=== PATIENT | male | born 1945 | race Caucasian/White ===

== ENCOUNTER 2017-06-05 23:00 | Emergency (ER) | payer MEDICARE ==
--- NOTE | 2017-06-05 23:37 | EDM.PDOC ---
ED HPI GENERAL MEDICAL PROBLEM - General Chief Complaint: Respiratory Problem Stated Complaint: cough and mucous Time Seen by Provider: 06/05/17 23:24 Source of Information: Reports: Patient History Limitations: Reports: No Limitations - History of Present Illness INITIAL COMMENTS - FREE TEXT/NARRATIVE: Patient arrives via ambulance with productive cough that started today. He called the ambulance because he was choking on the phlegm. He says he has had a temp today up to 100 and has had sinus pressure and congestion for 2-3 weeks. He hasn't seen a doctor but thinks he has a sinus infection. He had an albuterol neb en route which helped noticeably pt says. - Related Data Allergies Allergy/AdvReac Type Severity Reaction Status Date / Time morphine Allergy Nausea and Verified 06/05/17 23:27 Vomiting Home Meds: Home Meds Aspirin [Charu Chewable] 81 mg PO DAILY 05/09/14 [History] Atenolol 25 mg PO DAILY 05/09/14 [History] Levothyroxine [Synthroid] 50 mcg PO ACBREAKFAST 05/09/14 [History] atorvaSTATin [Lipitor] 40 mg PO DAILY 05/09/14 [History] metFORMIN [Glucophage] 500 mg PO BID 05/09/14 [History] Social & Family History - Tobacco Use Smoking Status *Q: Former Smoker Years of Tobacco use: 10 Used Tobacco, but Quit: Yes Month/Year Tobacco Last Used: march 1976 Second Hand Smoke Exposure: No - Alcohol Use Days Per Week of Alcohol Use: 1 Number of Drinks Per Day: 2 Total Drinks Per Week: 2 - Recreational Drug Use Recreational Drug Use: No ED ROS GENERAL - Review of Systems Review Of Systems: See Below Constitutional: Reports: Fever. Denies: Chills, Malaise, Weakness HEENT: Denies: Throat Pain, Vision Change Respiratory: Reports: Cough, Sputum. Denies: Shortness of Breath Cardiovascular: Denies: Chest Pain, Lightheadedness, Syncope GI/Abdominal: Denies: Abdominal Pain, Constipation, Diarrhea, Vomiting : Denies: Dysuria, Flank Pain Musculoskeletal: Denies: Neck Pain, Shoulder Pain Skin: Denies: Cyanosis, Jaundice, Mottled, Pallor, Diaphoresis Neurological: Denies: Confusion, Dizziness, Seizure, Syncope, Trouble Speaking, Difficulty Walking Psychiatric: Denies: Agitation, Anxiety, Confusion ED EXAM, GENERAL - Physical Exam Exam: See Below Exam Limited By: No Limitations General Appearance: Alert, WD/WN, No Apparent Distress Eye Exam: Bilateral Eye: EOMI, Normal Inspection, PERRL Ears: Normal External Exam, Hearing Grossly Normal Nose: Normal Inspection, No Blood Throat/Mouth: Normal Inspection, Normal Lips, Normal Voice, No Airway Compromise Head: Atraumatic, Normocephalic, Sinus Tenderness (tender to palpate over the frontal sinuses but not maxillary sinuses) Neck: Normal Inspection, Full Range of Motion Respiratory/Chest: No Respiratory Distress, Lungs Clear, Normal Breath Sounds, No Accessory Muscle Use Cardiovascular: Regular Rate, Rhythm, No Edema GI/Abdominal: Normal Bowel Sounds, Soft, Non-Tender, No Organomegaly Back Exam: No: CVA Tenderness (L), CVA Tenderness (R) Extremities: Normal Inspection, Normal Range of Motion Neurological: Alert, Oriented, Normal Cognition, No Motor/Sensory Deficits Psychiatric: Normal Affect, Normal Mood Skin Exam: Warm, Dry, Intact, Normal Color, No Rash Course - Vital Signs Last Recorded V/S: Last Vital Signs Temp 99.8 F 06/05/17 23:39 Pulse 93 06/05/17 23:39 Resp 18 06/05/17 23:39 BP 146/56 H 06/05/17 23:39 Pulse Ox 97 06/05/17 23:39 - Orders/Labs/Meds Orders: Active Orders 24 hr Category Date Time Status CXR [Chest 2V] [CR] Stat Exams 06/05/17 23:31 Ordered Amoxicillin/Clavulanate K [Augmentin 875 MG/125 MG] Med 06/06/17 00:15 Ordered 1 tab PO Q12HR Medication Orders Amoxicillin/Clavulanate Potassium (Augmentin 875 Mg/125 Mg) 1 tab PO Q12H SINA Stop: 06/06/17 12:16 Labs: Laboratory Tests 06/05/17 06/05/17 Range/Units 23:30 23:30 WBC 10.7 H (5.0-10.0) 10^3/uL RBC 4.52 (4.50-6.00) 10^6/uL Hgb 13.2 (13.0-17.0) g/dL Hct 39.9 L (40.0-52.0) % MCV 88.2 (82.0-92.0) fL MCH 29.1 (27.0-31.0) pg MCHC 33.0 (32.0-36.0) g/dL RDW 13.4 (11.5-14.5) % Plt Count 329 H (150-300) 10^3/uL MPV 7.1 L (7.4-10.4) fL Neut % (Auto) 68.4 (50.0-70.0) % Lymph % (Auto) 20.0 (20.0-40.0) % [place] % (Auto) 9.5 H (2.0-8.0) % Eos % (Auto) 1.7 (1.0-3.0) % Baso % (Auto) 0.4 (0.0-1.0) % Neut # (Auto) 7.4 H (2.5-7.0) 10^3/uL Lymph # (Auto) 2.1 (1.0-4.0) 10^3/uL [place] # (Auto) 1.0 H (0.1-0.8) 10^3/uL Eos # (Auto) 0.2 (0.1-0.3) 10^3/uL Baso # (Auto) 0.0 (0.0-0.1) 10^3/uL Sodium 141 (136-145) mmol/L Potassium 3.6 (3.3-5.3) mmol/L Chloride 103 (98-115) mmol/L Carbon Dioxide 25.1 (21.0-32.0) mmol/L BUN 16 (6-25) mg/dL Creatinine 1.04 (0.51-1.17) mg/dL Est Cr Clr Drug Dosing 60.03 mL/min Estimated GFR (MDRD) > 60 mL/min Glucose 136 H (70-110) mg/dL Calcium 8.8 (8.7-10.3) mg/dL Meds: Medications Generic Name Dose Route Start Last Admin Trade Name Freq PRN Reason Stop Dose Admin Amoxicillin/Clavulanate Potassium 1 tab 06/06/17 00:15 Augmentin 875 Mg/125 Mg PO 06/06/17 12:16 Q12H SINA - Re-Assessments/Exams Free Text/Narrative Re-Assessment/Exam: 06/06/17 00:12 WBC 10.7, CXR shows no infiltrates. Discussed findings and treatment plan with patient. Patient stable at discharge. Departure - Departure Time of Disposition: 00:10 Disposition: Home, Self-Care 01 Condition: Good Clinical Impression: Acute frontal sinusitis Qualifiers: Recurrence: not specified as recurrent Qualified Code(s): J01.10 - Acute frontal sinusitis, unspecified - Discharge Information Instructions: Sinusitis, Adult, [id number] Forms: ED Department Discharge Additional Instructions: 1. Drink 8 cups of water daily. 2. Take the Augmentin every 12 hours as directed. 3. Follow up with your PCP if worsening or if not improving in 4-5 days. - My Orders Last 24 Hours: My Active Orders 06/05/17 23:31 CXR [Chest 2V] [CR] Stat 06/06/17 00:15 Amoxicillin/Clavulanate K [Augmentin 875 MG/125 MG] 1 tab PO Q12HR - Assessment/Plan Last 24 Hours: My Active Orders 06/05/17 23:31 CXR [Chest 2V] [CR] Stat 06/06/17 00:15 Amoxicillin/Clavulanate K [Augmentin 875 MG/125 MG] 1 tab PO Q12HR
[2017-06-05 23:44] VITALS: BP 146/56
[2017-06-06] LABS: CHLORIDE,CL 103 mmol/L (98-115); SODIUM,NA 141 mmol/L (136-145)
[2017-06-06] MEDS ORDERED: Amoxicillin/Clavulanate K 875-125 MG Tab PO SCH (00:15)
== END 2017-06-06 00:20 | disposition home or self-care (01) ==
LOC: KA.ED 23:00
DX: J01.10 Acute frontal sinusitis, unspecified (principal); Z88.5 Allergy status to narcotic agent; Z79.82 Long term (current) use of aspirin; Z79.899 Other long term (current) drug therapy; Z79.84 Long term (current) use of oral hypoglycemic drugs; Z87.891 Personal history of nicotine dependence
CPT/HCPCS: 71046; 80048; 85025; 99283; A9270-GY

== ENCOUNTER 2023-08-12 17:34 | Emergency (ER) | payer MEDICARE ==
[2023-08-12 18:29] LABS: AMPHETAMINES SCREEN, URINE NEGATIVE (NEGATIVE); BARBITURATE SCREEN,URINE NEGATIVE (NEGATIVE); BENZODIAZEPINES SCREEN,URINE NEGATIVE (NEGATIVE); COCAINE METABOLITES,URINE NEGATIVE (NEGATIVE); METHADONE SCREEN, URINE NEGATIVE (NEGATIVE); METHAMPHETAMINES SCREEN, URINE NEGATIVE (NEGATIVE); OXYCODONE SCREEN,URINE NEGATIVE (NEGATIVE); PCP SCREEN,URINE NEGATIVE (NEGATIVE); TCA SCREEN,URINE NEGATIVE (NEGATIVE); THC SCREEN,URINE 50 NG/ML NEGATIVE (NEGATIVE)
[2023-08-12 19:13] VITALS: BP 139/57; PULSE 97
== END 2023-08-12 18:30 | disposition home or self-care (01) ==
LOC: KA.ED 17:34
DX: Z02.83 Encounter for blood-alcohol and blood-drug test (principal); E78.00 Pure hypercholesterolemia, unspecified; E11.9 Type 2 diabetes mellitus without complications; E03.9 Hypothyroidism, unspecified; Z88.5 Allergy status to narcotic agent; Z88.8 Allergy status to other drugs, medicaments and biological substances; Z79.82 Long term (current) use of aspirin; Z79.899 Other long term (current) drug therapy; Z79.890 Hormone replacement therapy; Z95.5 Presence of coronary angioplasty implant and graft
CPT/HCPCS: 80305-QW; 99282; 99283

== ENCOUNTER 2023-11-26 21:07 | Emergency (ER) | payer MEDICARE ==
[2023-11-26] MEDS: Amoxicillin/Clavulanate K 875-125 MG Tab PO ONE (21:53)
[2023-11-26 22:12] VITALS: BP 131/75; PULSE 106
== END 2023-11-26 22:08 | disposition home or self-care (01) ==
LOC: KA.ED 21:07
DX: J01.00 Acute maxillary sinusitis, unspecified (principal); E66.9 Obesity, unspecified; E11.9 Type 2 diabetes mellitus without complications; E03.9 Hypothyroidism, unspecified; Z68.29 Body mass index [BMI] 29.0-29.9, adult; Z88.5 Allergy status to narcotic agent; Z88.8 Allergy status to other drugs, medicaments and biological substances; Z79.890 Hormone replacement therapy; Z79.899 Other long term (current) drug therapy
CPT/HCPCS: 99283; A9270-GY